=== PATIENT | male | born 1995 | race Caucasian/White ===

== ENCOUNTER 2021-12-05 09:04 | Emergency (ER) | payer SELFPAY ==
[~2021-12-05] VITALS: Ht 162.6 cm; Wt 67.1 kg
[2021-12-05 09:10] VITALS: BP 146/98
--- NOTE | 2021-12-05 09:15 | NUR ---
AT BEDSIDE FOR EVAL.
--- NOTE | 2021-12-05 09:21 | NUR ---
DIRECTED PT TO WASH FACE WITH COOL WATER.
--- NOTE | 2021-12-05 09:53 | NUR ---
Patient discharged to home in stable condition. Written and verbal after care instructions given. Patient verbalizes understanding of instruction.
== END 2021-12-05 09:54 | disposition home or self-care (01) ==
LOC: ER 09:06
DX: T65.891A Toxic effect of other specified substances, accidental (unintentional), initial encounter (principal); H57.89 Other specified disorders of eye and adnexa; Z60.2 Problems related to living alone; Y92.89 Other specified places as the place of occurrence of the external cause